=== PATIENT | male | born 1930 | race Caucasian/White ===

== ENCOUNTER 2017-02-10 16:11 | Inpatient (IN) | payer MEDICARE, BC ==
[2017-02-10] MEDS ORDERED: GI Cocktail Oral Solution 30 ML PO ONE (16:40)
--- NOTE | 2017-02-10 17:25 | EDM.PDOC ---
ED HPI GENERAL MEDICAL PROBLEM - General Chief Complaint: Chest Pain Stated Complaint: Chest pain Time Seen by Provider: 02/10/17 17:02 Source of Information: Reports: Patient History Limitations: Reports: No Limitations - History of Present Illness INITIAL COMMENTS - FREE TEXT/NARRATIVE: Patient presented to local clinic and was then referred to ER for evaluation of multiple complaints, including chest pain. Describes chest pain as central anterior chest, slightly to right of sternum. Says it feels like "heartburn" and adds that it has been present overall for the last 1 1/2 weeks. In addition to that he has had increased constipation and feeling of fullness in abdomen. More fatigued than usual. Took OTC laxative which promoted a bowel movement and he felt better for several days. Denies any HEENT changes. No SOB/respiratory changes/cough No palpitations. Has chronic issues with poor sleep. Has chronic issues with constipation. Denies nausea/emesis/blood in stools. No changes. No MS changes. No neuro changes. Pain/discomfort does not change with positional changes, or with eating/drinking /going to bathroom. By the time patient came to the ER, pain was improving. GI cocktail ordered, however patient essentially pain-free when he received it. Patient does have history of CAD/COPD/VT Has some issues with muscle cramps, somewhat worse today. Chest Pain Score (Numeric/FACES): 2 - Related Data Allergies Allergy/AdvReac Type Severity Reaction Status Date / Time celecoxib [From Celebrex] Allergy Itching Verified 06/01/16 23:56 Home Meds: Home Meds Allopurinol [Zyloprim] 300 mg PO DAILY 02/10/17 [History] Fluticasone/Salmeterol [Advair Diskus 100-50] 1 puff INH BID 02/10/17 [History] Gabapentin [Neurontin] 600 mg PO TID 02/10/17 [History] Lisinopril 10 mg PO DAILY 02/10/17 [History] Metolazone 2.5 mg PO DAILY 02/10/17 [History] Multivitamin [Multi-Vitamin Daily] 1 tab PO DAILY 02/10/17 [History] Psyllium Husk/Aspartame [Metamucil Fiber Singles Packet] 3.4 gm PO BEDTIME 02/10 [History] Simvastatin [Zocor] 20 mg PO BEDTIME 02/10/17 [History] Warfarin [Coumadin] 5 mg PO .Pharmacy To Dose 02/10/17 [History] traMADol HCl [Tramadol HCl] 25 mg PO Q6H PRN 02/10/17 [History] Past Medical History HEENT History: Reports: Cataract, Hard of Hearing, Impaired Vision, Other (See Below) Other HEENT History: Left-sided hearing aide, glasses Cardiovascular History: Reports: Afib, Arrhythmia, CAD, Cardiomyopathy, Heart Failure, Heart Murmur, High Cholesterol, Hypertension, VT, PVD, Other (See Below ) Other Cardiovascular History: Multiform PVCs; moderate biatrial enlargement, right ventricular enlargement, pulmonary hypertension, and cardiomegaly by echocardiogram; borderline incomplete bifascicular bundle branch block; possible history of VT in the past however patient is uncertain; mild aortic valve stenosis/insufficiency and mitral valve insufficiency, diastolic CHF Respiratory History: Reports: Bronchitis, Recurrent, COPD, Pneumonia, Recurrent , Pulmonary Fibrosis Gastrointestinal History: Reports: Cholelithiasis, Chronic Constipation, Colon Polyp, Diverticulosis, Other (See Below) Other Gastrointestinal History: Umbilical hernia Genitourinary History: Reports: BPH, Chronic Renal Insuffiency Musculoskeletal History: Reports: Amputation, Arthritis, Back Pain, Chronic, Fracture, Gout, Neck Pain, Chronic, Osteoarthritis, Osteoporosis, Other (See Below) Other Musculoskeletal History: Left trimalleolar fracture on 07/07/13, 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, disc prolapse in C5-C6 and C6- C7 Neurological History: Reports: Other (See Below) Other Neuro History: History of trigeminal neuralgia Psychiatric History: Reports: None Endocrine/Metabolic History: Reports: Osteoporosis Hematologic History: Reports: Anemia, B12 Deficiency Immunologic History: Reports: None Oncologic (Cancer) History: Reports: None Dermatologic History: Reports: Venous Stasis Dermatitis - Infectious Disease History Infectious Disease History: Reports: Chicken Pox, Mumps - Past Surgical History Head Surgeries/Procedures: Reports: None HEENT Surgical History: Reports: Cataract Surgery, Oral Surgery, Other (See Below) GI Surgical History: Reports: Appendectomy, Cholecystectomy, Colonoscopy, Polypectomy, Other (See Below) Endocrine Surgical History: Reports: None Neurological Surgical History: Reports: Laminectomy, Lumbar Spine, Other (See Below) Musculoskeletal Surgical History: Reports: Amputation, ORIF, Other (See Below) Oncologic Surgical History: Reports: None - Past Imaging History Past Imaging History: Reports: Cardiac Echo, MRI Social & Family History - Family History HEENT: Reports: None Cardiac: Reports: Hypertension, Other (See Below) Other Cardiac Family History: Mother with hypertension Respiratory: Reports: None GI: Reports: None : Reports: None OBGYN: Reports: None Musculoskeletal: Reports: None Neurological: Reports: None Psychiatric: Reports: None Endocrine/Metabolic: Reports: None Hematologic: Reports: None Immunologic: Reports: None Dermatologic: Reports: None Oncologic: Reports: None - Tobacco Use Smoking Status *Q: Former Smoker Years of Tobacco use: 20 Packs/Tins Daily: 2.5 Used Tobacco, but Quit: Yes Month Tobacco Last Used: Second Hand Smoke Exposure: No - Caffeine Use Caffeine Use: Reports: Coffee Caffeine Use Comment: One cup of coffee per day, 2 glasses of tea per day - Alcohol Use Days Per Week of Alcohol Use: 1 (No previous DWIs, problems with alcohol abuse, etc.) Number of Drinks Per Day: 1 (Usually beer) Total Drinks Per Week: 1 - Recreational Drug Use Recreational Drug Use: No Drug Use in Last 12 Months: No - Living Situation & Occupation Living situation: Reports: , Alone Occupation: Retired ED ROS GENERAL - Review of Systems Review Of Systems: See Below Constitutional: Reports: Fatigue. Denies: Fever, Chills, Malaise, Weakness, Night Sweats, Diaphoresis, Decreased Appetite, Weight Loss, Weight Gain HEENT: Reports: No Symptoms Respiratory: Reports: No Symptoms, Other (No change from baseline). Denies: Pleuritic Chest Pain Cardiovascular: Reports: Chest Pain. Denies: Lightheadedness, Palpitations, Syncope GI/Abdominal: Reports: Constipation, Distension. Denies: Black Stool, Bloody Stool, Diarrhea, Decreased Appetite, Difficulty Swallowing, Hematemesis, Hematochezia, Melena, Mucous in Stool, Nausea, Vomiting : Reports: No Symptoms Musculoskeletal: Reports: No Symptoms Skin: Reports: No Symptoms Neurological: Reports: No Symptoms Psychiatric: Reports: No Symptoms Hematologic/Lymphatic: Reports: No Symptoms ED EXAM, GENERAL - Physical Exam Exam: See Below Exam Limited By: No Limitations General Appearance: Alert, WD/WN, No Apparent Distress Eye Exam: Bilateral Eye: EOMI, PERRL Ears: Normal External Exam Nose: Normal Inspection Throat/Mouth: Normal Inspection, Normal Lips, Normal Voice, No Airway Compromise Head: Atraumatic, Normocephalic Neck: Normal Inspection, Supple, Non-Tender, Full Range of Motion Respiratory/Chest: No Respiratory Distress, No Accessory Muscle Use, Chest Non- Tender, Other (faint crackles base of right lung) Cardiovascular: Normal Peripheral Pulses, Regular Rate, Rhythm, No Edema, Systolic Murmur Peripheral Pulses: 2+: Radial (L), Radial (R) GI/Abdominal: Normal Bowel Sounds, Soft, Non-Tender, Other (rounded protuberant abdomen) (Male) Exam: Deferred Rectal (Males) Exam: Deferred Back Exam: Normal Inspection. No: CVA Tenderness (L), CVA Tenderness (R), Muscle Spasm, Paraspinal Tenderness, Vertebral Tenderness Extremities: Non-Tender, Normal Capillary Refill, Pedal Edema (mild, equal bilaterally) Neurological: Alert, Oriented, Normal Cognition, No Motor/Sensory Deficits Psychiatric: Normal Affect, Normal Mood Skin Exam: Warm, Dry, Intact, Normal Color EKG INTERPRETATION EKG Date: 02/10/17 Time: 16:09 Rhythm: Other (demand pacemaker) Rate (Beats/Min): 70 [place]: LAD-Left [place] Deviation P-Wave: Variable QRS: Other (Intraventricular block) ST-T: Normal QT: Normal Comparison: Change From Previous EKG Course - Vital Signs Last Recorded V/S: Last Vital Signs Temp 36.7 C 02/10/17 16:15 Pulse 71 02/10/17 17:25 Resp 18 02/10/17 17:25 BP 162/78 H 02/10/17 17:25 Pulse Ox 100 02/10/17 17:25 - Orders/Labs/Meds Orders: Active Orders 24 hr Category Date Time Status EKG Documentation Completion [RC] ASDIRECTED Care 02/10/17 16:20 Active Abdomen 2V AP Flat Upright [CR] Stat Exams 02/10/17 17:03 Taken Chest 1V Frontal [CR] Stat Exams 02/10/17 16:21 Taken Labs: Laboratory Tests 02/10/17 02/10/17 02/10/17 Range/Units 16:10 16:10 16:10 WBC 6.9 (4.0-10.2) K/uL RBC 4.51 (4.33-5.41) M/uL Hgb 14.3 (13.1-16.8) g/dL Hct 42.2 (39.0-49.0) % MCV 93.6 (84.0-98.0) fL MCH 31.7 (28.2-33.3) pg MCHC 33.9 (31.7-36.0) g/dL RDW 15.6 H (11.2-14.1) % Plt Count 143 L (150-350) K/uL Neut % (Auto) 71.0 (45.0-80.0) % Lymph % (Auto) 17.4 (10.0-50.0) % [place] % (Auto) 9.7 (2.0-14.0) % Eos % (Auto) 1.5 (0.0-5.0) % Baso % (Auto) 0.4 (0.0-2.0) % Neut # (Auto) 4.89 (1.40-7.00) K/uL Lymph # (Auto) 1.20 (0.50-3.50) K/uL [place] # (Auto) 0.67 (0.00-1.00) K/uL Eos # (Auto) 0.10 (0.00-0.50) K/uL Baso # (Auto) 0.03 (0.00-0.20) K/uL PT 27.0 H (9.8-11.7) SEC INR 2.4 Sodium 136 (136-145) mmol/L Potassium 4.4 (3.5-5.1) mmol/L Chloride 100 (98-107) mmol/L Carbon Dioxide 28.0 (21.0-32.0) mmol/L BUN 30 H (7-18) mg/dL Creatinine 1.25 H (0.51-1.17) mg/dL Est Cr Clr Drug Dosing 44.61 mL/min Estimated GFR (MDRD) 55 mL/min Glucose 90 (74-106) mg/dL Calcium 9.0 (8.5-10.1) mg/dL Total Bilirubin 0.6 (0.2-1.0) mg/dL AST 29 (15-37) U/L ALT 30 (12-78) U/L Alkaline Phosphatase 72 (46-116) IU/L Creatine Kinase (26-308) U/L Creatine Kinase Index (0.0-2.5) % CK-MB (CK-2) (0.00-3.60) ng/mL Troponin I 0.022 (0.000-0.056) ng/mL Total Protein 7.9 (6.4-8.2) g/dL Albumin 4.0 (3.4-5.0) g/dL Specimen Type Urine Color Urine Appearance Urine pH (5.0-9.0) Ur Specific [place] (1.005-1.030) Urine Protein (NEGATIVE) mg/dL Urine Glucose (UA) (NEGATIVE) mg/dL Urine Ketones (NEGATIVE) mg/dL Urine Occult Blood (NEGATIVE) Urine Nitrite (NEGATIVE) Urine Bilirubin (NEGATIVE) Urine Urobilinogen (0.2-1.0) E.U./dL Ur Leukocyte Esterase (NEGATIVE) Urine RBC /HPF Urine WBC /HPF Ur Epithelial Cells /LPF Urine Bacteria (NONE TO FEW) /HPF 02/10/17 02/10/17 Range/Units 16:10 17:40 WBC (4.0-10.2) K/uL RBC (4.33-5.41) M/uL Hgb (13.1-16.8) g/dL Hct (39.0-49.0) % MCV (84.0-98.0) fL MCH (28.2-33.3) pg MCHC (31.7-36.0) g/dL RDW (11.2-14.1) % Plt Count (150-350) K/uL Neut % (Auto) (45.0-80.0) % Lymph % (Auto) (10.0-50.0) % [place] % (Auto) (2.0-14.0) % Eos % (Auto) (0.0-5.0) % Baso % (Auto) (0.0-2.0) % Neut # (Auto) (1.40-7.00) K/uL Lymph # (Auto) (0.50-3.50) K/uL [place]lier # (Auto) (0.00-1.00) K/uL Eos # (Auto) (0.00-0.50) K/uL Baso # (Auto) (0.00-0.20) K/uL PT (9.8-11.7) SEC INR Sodium (136-145) mmol/L Potassium (3.5-5.1) mmol/L Chloride (98-107) mmol/L Carbon Dioxide (21.0-32.0) mmol/L BUN (7-18) mg/dL Creatinine (0.51-1.17) mg/dL Est Cr Clr Drug Dosing mL/min Estimated GFR (MDRD) mL/min Glucose (74-106) mg/dL Calcium (8.5-10.1) mg/dL Total Bilirubin (0.2-1.0) mg/dL AST (15-37) U/L ALT (12-78) U/L Alkaline Phosphatase (46-116) IU/L Creatine Kinase 175 (26-308) U/L Creatine Kinase Index 2.0 (0.0-2.5) % CK-MB (CK-2) 3.50 (0.00-3.60) ng/mL Troponin I (0.000-0.056) ng/mL Total Protein (6.4-8.2) g/dL Albumin (3.4-5.0) g/dL Specimen Type Urinblad Urine Color Yellow Urine Appearance Clear Urine pH 7.5 (5.0-9.0) Ur Specific [place] 1.015 (1.005-1.030) Urine Protein Negative (NEGATIVE) mg/dL Urine Glucose (UA) Negative (NEGATIVE) mg/dL Urine Ketones Negative (NEGATIVE) mg/dL Urine Occult Blood Negative (NEGATIVE) Urine Nitrite Negative (NEGATIVE) Urine Bilirubin Negative (NEGATIVE) Urine Urobilinogen 0.2 (0.2-1.0) E.U./dL Ur Leukocyte Esterase Moderate H (NEGATIVE) Urine RBC Not seen /HPF Urine WBC 0-5 /HPF Ur Epithelial Cells Few /LPF Urine Bacteria Few (NONE TO FEW) /HPF Meds: Medications Discontinued Medications Generic Name Dose Route Start Last Admin Trade Name Freq PRN Reason Stop Dose Admin Al Hydroxide/Mg Hydroxide 30 ml 02/10/17 16:40 02/10/17 16:49 Gi Cocktail PO 02/10/17 16:41 30 ml ONETIME ONE Administration - Radiology Interpretation Free Text/Narrative:: No acute changes appreciated on chest xray. Compared to prior films. No air/fluid levels noted on abdominal films. - Re-Assessments/Exams Free Text/Narrative Re-Assessment/Exam: 02/10/17 18:22 Patient had no chest pain while present in ER. Will admit for continued cardiac monitoring and continue serial labs for r/o VT. Will treat for constipation. Suspect that patient's complaints are related to constipation and have GI etiology. Departure - Departure Time of Disposition: 18:24 Disposition: Refer to Observation Condition: Good Clinical Impression: Chronic constipation Chest pain Qualifiers: Chest pain type: unspecified Qualified Code(s): R07.9 - Chest pain, unspecified - Discharge Information Forms: ED Department Discharge - Problem List & Annotations (1) Chest pain SNOMED Code(s): 07953545 Code(s): R07.9 - CHEST PAIN, UNSPECIFIED Status: Acute Priority: High Current Visit: Yes Onset Date: ~01/27/17 Annotation/Comment:: GI vs Cardiac etiology Qualifiers: Chest pain type: unspecified Qualified Code(s): R07.9 - Chest pain, unspecified (2) Pacemaker SNOMED Code(s): 830946422, 896306358 Code(s): Z95.0 - PRESENCE OF CARDIAC PACEMAKER Status: Chronic Current Visit: No (3) Afib, Atrial fibrillation SNOMED Code(s): 79410937 Code(s): I48.91 - UNSPECIFIED ATRIAL FIBRILLATION Status: Chronic Current Visit: No (4) COPD, Moderate chronic obstructive pulmonary disease SNOMED Code(s): 577345568 Code(s): J44.9 - CHRONIC OBSTRUCTIVE PULMONARY DISEASE, UNSPECIFIED Status : Chronic Current Visit: No (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 (6) Cardiomegaly SNOMED Code(s): 7780328 Code(s): I51.7 - CARDIOMEGALY Status: Chronic Current Visit: No (7) HTN, Benign essential hypertension SNOMED Code(s): 2598405 Code(s): I10 - ESSENTIAL (PRIMARY) HYPERTENSION Status: Chronic Priority : Medium Current Visit: No (8) Osteoarthritis SNOMED Code(s): 303816187 Code(s): M19.90 - UNSPECIFIED OSTEOARTHRITIS, UNSPECIFIED SITE Status: Chronic Priority: Medium Current Visit: No (9) Osteoporosis SNOMED Code(s): 19459255 Code(s): M81.0 - AGE-RELATED OSTEOPOROSIS W/O CURRENT PATHOLOGICAL FRACTURE Status: Chronic Current Visit: No (10) Mixed hyperlipidemia SNOMED Code(s): 022233876 Code(s): E78.2 - MIXED HYPERLIPIDEMIA Status: Acute Current Visit: No (11) Chronic constipation SNOMED Code(s): 983525324 Code(s): K59.09 - OTHER CONSTIPATION Status: Chronic Priority: Medium Current Visit: Yes (12) Coronary artery disease SNOMED Code(s): 61024077 Code(s): I25.10 - ATHSCL HEART DISEASE OF [place]' CORONARY ARTERY W/O ANG PCTRS Status: Chronic Priority: Medium Current Visit: Yes Qualifiers: Coronary Disease-Associated Artery/Lesion type: ione artery [place] vs. transplanted heart: ione heart Associated angina: without angina Qualified Code(s): I25.10 - Atherosclerotic heart disease of [place] coronary artery without angina pectoris - Problem List Review Problem List Initiated/Reviewed/Updated: Yes - My Orders Last 24 Hours: My Active Orders 02/10/17 16:20 EKG Documentation Completion [RC] ASDIRECTED 02/10/17 16:21 Chest 1V Frontal [CR] Stat 02/10/17 17:03 Abdomen 2V AP Flat Upright [CR] Stat - Assessment/Plan Admission H&P: Please use this note as an admission H&P Last 24 Hours: My Active Orders 02/10/17 16:20 EKG Documentation Completion [RC] ASDIRECTED 02/10/17 16:21 Chest 1V Frontal [CR] Stat 02/10/17 17:03 Abdomen 2V AP Flat Upright [CR] Stat Assessment:: Abdominal discomfort, constipation, and intermittent chest pain over the last 1 1/2 to 2 weeks. GI vs Cardiac vs combination etiology. Plan: Admit for r/o VT. Telemetry. Serial labs. Will treat constipation. Stable for general supervision. Anticipate 24-48 hour stay before discharge.
[2017-02-10] MEDS ORDERED: Acetaminophen 325 MG Tab PO PRN (19:00)
[2017-02-10] MEDS ORDERED: Magnesium Citrate Solution 296 ML Bottle PO ONE (19:07)
[2017-02-10] MEDS ORDERED: traMADol 50 MG Tab PO PRN (19:10)
[2017-02-10] MEDS ORDERED: Pantoprazole 40 MG Vial IVPUSH ONE (19:13)
[2017-02-10] MEDS: Simvastatin 20 MG Tab PO SCH (20:13)
[2017-02-10] MEDS ORDERED: Warfarin 5 MG Tab PO ONE (20:15)
[2017-02-11] MEDS: Metolazone 2.5 MG Tab PO SCH (09:26)
[2017-02-11] MEDS: Multivitamin Tab PO SCH (09:26)
[2017-02-11] MEDS: Formoterol/Mometasone 100-5 MCG 8.8 GM Inhaler IH SCH ×2 (09:26→19:26)
[2017-02-11] MEDS: Lisinopril 10 MG Tab PO SCH (09:26)
[2017-02-11] MEDS: Allopurinol 100 MG Tab PO SCH (09:26)
[2017-02-11] MEDS: Gabapentin 300 MG Cap PO SCH ×3 (09:26→17:44)
--- NOTE | 2017-02-11 11:26 | PCM.PN ---
- General Info Date of Service: 02/11/17 Admission Dx/Problem (Free Text): 1. Chest pain 2. Constipation Subjective Update: As below Functional Status: Reports: Pain Controlled, Tolerating Diet, Ambulating, Urinating, Incentive Spirometry. Denies: New Symptoms Pain Score: 0 - Review of Systems General: Reports: No Symptoms. Denies: Fever, Weakness, Fatigue, Malaise, Chills, Night Sweats, Appetite, Other HEENT: Reports: Glasses. Denies: Dysphasia, Ear Pain, Eye Pain, Post Nasal Drip , Sinus Congestion, Sore Throat, Rhinitis, Visual Changes Pulmonary: Reports: No Symptoms. Denies: Shortness of Breath, Pleuritic Chest Pain, Cough, Sputum, Hemoptysis, Wheezing Cardiovascular: Reports: No Symptoms. Denies: Chest Pain, Palpitations, Dyspnea on Exertion, Orthopnea, PND, Edema, Lightheadedness Gastrointestinal: Reports: No Symptoms. Denies: Abdominal Pain, Constipation ( With 4 bowel movements since admission into large somewhat loose bowel movements this morning), Decreased Appetite, Diarrhea (As above), Difficulty Swallowing, Flatus, Hematochezia, Melena, Nausea, Vomiting Genitourinary: Reports: No Symptoms. Denies: Dysuria, Frequency, Burning, Pain , Urgency, Incontinence, Hematuria, Retention, Flank Pain Musculoskeletal: Reports: No Symptoms. Denies: Neck Pain, Shoulder Pain, Arm Pain, Back Pain, Leg Pain Skin: Reports: No Symptoms. Denies: Diaphoresis, Bruising Neurological: Reports: Numbness (Stable by history), Paresthesia (Stable by history), Tingling (Stable by history). Denies: Confusion, Dizziness, Headache , Seizure, Weakness Psychiatric: Reports: No Symptoms. Denies: Confusion, Depression, Anxiety, Agitation, Hallucinations - Patient Data Vitals - Most Recent: Last Vital Signs Temp 36.6 C 02/11/17 10:54 Pulse 68 02/11/17 10:54 Resp 16 02/11/17 10:54 BP 163/76 H 02/11/17 10:54 Pulse Ox 95 02/11/17 10:54 Vital Signs - 24 hr 02/10/17 02/10/17 02/10/17 16:15 16:25 16:50 Temperature [ 36.7 C Temporal] Pulse, 77 74 Peripheral [ Right Pulse Oximetry] Respiratory 18 18 18 Rate Blood Pressure 179/83 H 158/69 H 152/64 H [Right Upper Arm] O2 Sat by Pulse 100 99 100 Oximetry 02/10/17 02/10/17 02/10/17 16:53 17:10 17:25 Temperature [ Temporal] Pulse, 62 72 71 Peripheral [ Right Pulse Oximetry] Respiratory 18 18 18 Rate Blood Pressure 170/68 H 152/68 H 162/78 H [Right Upper Arm] O2 Sat by Pulse 100 100 100 Oximetry 02/10/17 02/10/17 02/10/17 17:42 17:50 18:29 Temperature [ 36.7 C 36.7 C Temporal] Pulse, 84 78 77 Peripheral [ Right Pulse Oximetry] Respiratory 18 19 18 Rate Blood Pressure 158/58 H 162/70 H 153/69 H [Right Upper Arm] O2 Sat by Pulse 100 100 100 Oximetry 02/10/17 02/11/17 02/11/17 19:03 08:00 10:54 Temperature [ 36.8 C 36.6 C Temporal] Pulse, 68 68 Peripheral [ Right Pulse Oximetry] Respiratory 16 16 Rate Blood Pressure 123/62 163/76 H [Right Upper Arm] O2 Sat by Pulse 100 96 95 Oximetry Weight - Most Recent: 105.233 kg I&O - Last 24 Hours: Intake & Output 02/10/17 02/11/17 02/11/17 22:59 06:59 14:59 Intake Total 560 360 Output Total 300 450 Balance 260 -90 Imaging Impressions - Last 24 Hours: monitor worker shows 100% paced rhythm Lab Results Last 24 Hours: Laboratory Results - last 24 hr 02/10/17 02/10/17 02/11/17 Range/Units 22:05 22:05 06:40 PT (9.8-11.7) SEC INR Magnesium 1.9 (1.8-2.4) mg/dL Creatine Kinase 190 (26-308) U/L Creatine Kinase Index 1.8 (0.0-2.5) % CK-MB (CK-2) 3.50 (0.00-3.60) ng/mL Troponin I 0.029 (0.000-0.056) ng/mL [id number]-[id number]-Tdftglalnop Pept 671 H (0-125) pg/mL 02/11/17 02/11/17 Range/Units 07:55 08:00 PT 23.0 H (9.8-11.7) SEC INR 2.1 Magnesium (1.8-2.4) mg/dL Creatine Kinase 166 (26-308) U/L Creatine Kinase Index 1.4 (0.0-2.5) % CK-MB (CK-2) 2.40 (0.00-3.60) ng/mL Troponin I 0.014 (0.000-0.056) ng/mL Jrq-B-Ftazxedqusl Pept (0-125) pg/mL Davey Results Last 24 Hours: None Med Orders - Current: Current Medications Acetaminophen (Tylenol) 650 mg PO Q4H PRN PRN Reason: analgesia/fever Allopurinol (Zyloprim) 300 mg PO DAILY [facility], [facility] Last Admin: 02/11/17 09:26 Dose: Not Given Gabapentin (Neurontin) 600 mg PO TID [facility], [facility]1983 Last Admin: 02/11/17 11:11 Dose: 600 mg Lisinopril (Prinivil) 10 mg PO DAILY [facility], [facility]1983 Last Admin: 02/11/17 09:26 Dose: Not Given Metolazone (Zaroxolyn) 2.5 mg PO DAILY [facility], [facility] Last Admin: 02/11/17 09:26 Dose: Not Given Mometasone Furoate/Formoterol Fumar (Dulera 100-5 Mcg) 2 puff IH BIDRT [facility], [facility]1983 Last Admin: 02/11/17 09:26 Dose: Not Given Multivitamins/Minerals/Vitamin C (Tab-A-Mando) 1 tab PO DAILY [facility], [facility]1983 Last Admin: 02/11/17 09:26 Dose: Not Given Pharmacy To Dose (Warfarin) 0 each PO DAILY [facility], [facility] Simvastatin (Zocor) 20 mg PO BEDTIME [facility], [facility] Last Admin: 02/10/17 20:13 Dose: 20 mg Tramadol HCl (Ultram) 25 mg PO Q6H PRN PRN Reason: Pain Discontinued Medications Al Hydroxide/Mg Hydroxide (Gi Cocktail) 30 ml PO ONETIME ONE Stop: 02/10/17 16:41 Last Admin: 02/10/17 16:49 Dose: 30 ml Magnesium Citrate (Citrate Of Magnesia) 296 ml PO ONETIME ONE Stop: 02/10/17 19:08 Last Admin: 02/10/17 20:13 Dose: 296 ml Pantoprazole Sodium (Protonix Iv) 40 mg IVPUSH ONETIME ONE Stop: 02/10/17 19:14 Last Admin: 02/10/17 20:14 Dose: 40 mg Warfarin Sodium (Coumadin) 5 mg PO ONETIME ONE Stop: 02/10/17 20:16 Last Admin: 02/10/17 20:13 Dose: 5 mg - Exam Quality Assessment: Supplemental Oxygen, DVT Prophylaxis (On Coumadin with therapeutic INR). No: Central Line/PICC, Urine Catheter, Skin Breakdown, Restraints General: Alert, Oriented, Cooperative, No Acute Distress HEENT: Pupils Equal, Pupils Reactive, EOMI, Mucous Membr. Moist/[place], Other ( Glasses, left hearing aid) Neck: Supple, Trachea Midline, No JVD, No Thyromegaly, Carotid Bruit (Mild bilateral carotid bruits versus transmitted heart sounds). No: Lymphadenopathy Lungs: Normal Respiratory Effort, Rales (Mild bilateral basilar). No: Rhonchi, Rub, Wheezing Cardiovascular: Regular Rate, Regular Rhythm, Murmurs (Mild 1/6 BILL of the aortic valve). No: Gallops, Rubs GI/Abdominal Exam: Normal Bowel Sounds, Soft, Non-Tender, No Organomegaly, No Distention, No Abnormal Bruit, No Mass, Pelvis Stable, Other (Obese). No: Guarding (Male) Exam: Deferred Back Exam: Normal Inspection, Full Range of Motion. No: CVA Tenderness (L), CVA Tenderness (R), Muscle Spasm Peripheral Pulses: 2+: Radial (L), Radial (R), Dorsalis Pedis (L), Dorsalis Pedis (R) Skin: Warm, Dry, Intact, Other (Moderate bilateral venous stasis dermatitis in the anterior tibial regions bilaterally). No: Ecchymosis Neurological: No New Focal Deficit, Other (No clinical orthostasis) Psy/Mental Status: Alert, Normal Affect, Normal Mood. No: Agitated, Hallucinations, Withdrawal Symptoms EKG INTERPRETATION EKG Date: 02/11/17 Time: 07:13 Rhythm: Other (100% paced) Rate (Beats/Min): 69 [place]: LAD-Left [place] Deviation P-Wave: Absent QRS: Wide (Paced rhythm) ST-T: Other (Paced rhythm) OK/PQ Interval: Paced rhythm Comparison: No Change (02/10/17) EKG Interpretation Comments: 1. No acute ischemic changes 2. 100% paced rhythm - Problem List & Annotations (1) CHF, Congestive heart failure SNOMED Code(s): 71148488 Code(s): I50.9 - HEART FAILURE, UNSPECIFIED Status: Acute Priority: High Current Visit: No Annotation/Comment:: History of cardiomegaly and recurrent CHF with patient previously taking his Lasix on an every other day basis. Note significant BNP elevation today. Various therapeutic options were discussed with the patient, who does request continued hospitalization for IV Lasix therapy for now. He will be transferred to acute care with initiation of aggressive IV Lasix therapy this morning. Repeat blood work and chest x-ray in the a.m.. Otherwise close follow-up by his purchasing/receiving at [facility] as below. Note current pacemaker (2) Chest pain SNOMED Code(s): 81302316 Code(s): R07.9 - CHEST PAIN, UNSPECIFIED Status: Acute Priority: High Current Visit: Yes Onset Date: ~01/27/17 Qualifiers: Chest pain type: unspecified Qualified Code(s): R07.9 - Chest pain, unspecified Annotation/Comment:: GI vs Cardiac etiology suspected by accepting physician as per emergency room note. Negative serial cardiac enzymes with exception of high normal troponin I value secondary to CHF with significantly elevated BNP today. He is closely followed up by his purchasing/receiving by his history. No chest pain or anginal-type symptoms during this initial hospitalization (3) Chronic constipation SNOMED Code(s): 334789083 Code(s): K59.09 - OTHER CONSTIPATION Status: Chronic Priority: Medium Current Visit: Yes Annotation/Comment:: Resolved acute constipation during this observation (4) Coronary artery disease SNOMED Code(s): 71312716 Code(s): I25.10 - ATHSCL HEART DISEASE OF [place] CORONARY ARTERY W/O ANG PCTRS Status: Chronic Priority: Medium Current Visit: Yes Qualifiers: Coronary Disease-Associated Artery/Lesion type: [place] artery [place] vs. transplanted heart: [place] heart Associated angina: without angina Qualified Code(s): I25.10 - Atherosclerotic heart disease of [place] coronary artery without angina pectoris Annotation/Comment:: As above (5) Mixed hyperlipidemia SNOMED Code(s): 284809944 Code(s): E78.2 - MIXED HYPERLIPIDEMIA Status: Chronic Current Visit: Yes Annotation/Comment:: Currently under therapy (6) Afib, Atrial fibrillation SNOMED Code(s): 79876163 Code(s): I48.91 - UNSPECIFIED ATRIAL FIBRILLATION Status: Chronic Priority: Medium Current Visit: Yes Annotation/Comment:: INR therapeutic today (7) COPD (chronic obstructive pulmonary disease) SNOMED Code(s): 27770687 Code(s): J44.9 - CHRONIC OBSTRUCTIVE PULMONARY DISEASE, UNSPECIFIED Status : Chronic Priority: Medium Current Visit: No Qualifiers: COPD type: emphysema Annotation/Comment:: No recent fever, cough, or other bronchitic type symptoms (8) HTN, Benign essential hypertension SNOMED Code(s): 3112543 Code(s): I10 - ESSENTIAL (PRIMARY) HYPERTENSION Status: Chronic Priority : Medium Current Visit: No Annotation/Comment:: Somewhat elevated during this hospitalization. Continue to observe closely with IV Lasix therapy initiated this morning as above (9) Hypoalbuminemia SNOMED Code(s): 043320045 Code(s): E88.09 - H DISORDERS OF PLASMA-PROTEIN METABOLISM, NEC Status: Chronic Priority: Medium Current Visit: No Annotation/Comment:: High- protein Glucerna supplements as snacks (10) Renal insufficiency SNOMED Code(s): 122872563 Code(s): N28.9 - DISORDER OF KIDNEY AND URETER, UNSPECIFIED Status: Chronic Priority: Medium Current Visit: No Annotation/Comment:: As above. Continued close observation of his renal status secondary to IV Lasix therapy (11) Gout SNOMED Code(s): 47978808 Code(s): M10.9 - GOUT, UNSPECIFIED Status: Chronic Priority: Medium Current Visit: No Annotation/Comment:: Stable by history. Continue to observe closely secondary to his IV Lasix (12) UTI (urinary tract infection) SNOMED Code(s): 32804445 Code(s): N39.0 - URINARY TRACT INFECTION, SITE NOT SPECIFIED Status: Acute Priority: Medium Current Visit: Yes Onset Date: 02/10/17 Qualifiers: Urinary tract infection type: acute cystitis Hematuria presence: without hematuria Qualified Code(s): N30.00 - Acute cystitis without hematuria Annotation/Comment:: Positive leukocyte esterase, urine culture and sensitivity ordered for today. Initiate Keflex therapy with caution secondary to his Coumadin therapy with repeat INR tomorrow - Problem List Review Problem List Initiated/Reviewed/Updated: Yes - Assessment Assessment:: As above - Plan Plan:: As above. Extensive precautions were given to the patient, who is in agreement with the treatment plan. Anticipate about 2-3 days of additional hospitalization secondary to his history of recurrent and refractory CHF.
[2017-02-11] MEDS: Furosemide 40 MG/4 ML VIAL IVPUSH SCH ×2 (12:22→19:27)
[2017-02-11] MEDS: Potassium Chloride 20 MEQ Tab.ER PO SCH ×2 (12:22→17:44)
[2017-02-11] MEDS: Sodium Chloride 0.9% 10 ML Syringe FLUSH PRN (12:26)
[2017-02-11] MEDS: Cephalexin 250 MG Cap PO SCH ×2 (15:51→19:27)
[2017-02-11] MEDS: Warfarin 5 MG Tab PO SCH (17:45)
[2017-02-11] MEDS: Sodium Chloride 0.9% 10 ML Syringe FLUSH SCH (19:27)
[2017-02-11] MEDS: Simvastatin 20 MG Tab PO SCH (19:27)
[2017-02-12] MEDS: Sodium Chloride 0.9% 10 ML Syringe FLUSH PRN ×2 (03:26→11:26)
[2017-02-12] MEDS: Furosemide 40 MG/4 ML VIAL IVPUSH SCH ×3 (03:26→20:10)
[2017-02-12] MEDS: Cephalexin 250 MG Cap PO SCH ×4 (08:15→20:10)
[2017-02-12] MEDS: Formoterol/Mometasone 100-5 MCG 8.8 GM Inhaler IH SCH ×2 (08:15→20:10)
[2017-02-12] MEDS: Allopurinol 100 MG Tab PO SCH (08:16)
[2017-02-12] MEDS: Potassium Chloride 20 MEQ Tab.ER PO SCH ×3 (08:16→17:31)
[2017-02-12] MEDS: Multivitamin Tab PO SCH (08:16)
[2017-02-12] MEDS: Metolazone 2.5 MG Tab PO SCH (08:16)
[2017-02-12] MEDS: Lisinopril 10 MG Tab PO SCH (08:16)
[2017-02-12] MEDS: Gabapentin 300 MG Cap PO SCH ×3 (08:16→17:31)
[2017-02-12] MEDS: Sodium Chloride 0.9% 10 ML Syringe FLUSH SCH ×2 (08:17→20:11)
--- NOTE | 2017-02-12 12:52 | PCM.PN ---
- General Info Date of Service: 02/12/17 Admission Dx/Problem (Free Text): 1. Chest pain 2. Constipation Subjective Update: As below Functional Status: Reports: Pain Controlled, Tolerating Diet, Ambulating, Urinating, New Symptoms (Occasional muscle cramps and myalgias secondary to Lasix therapy). Denies: Incentive Spirometry Pain Score: 3 - Review of Systems General: Denies: Fever, Weakness, Fatigue, Malaise, Chills, Night Sweats, Appetite (Appetite good) HEENT: Reports: Glasses, Other (Left-sided hearing aid). Denies: Dysphasia, Ear Pain, Eye Pain, Headaches, Post Nasal Drip, Sinus Congestion, Sore Throat, Rhinitis, Visual Changes Pulmonary: Reports: No Symptoms. Denies: Shortness of Breath, Pleuritic Chest Pain, Cough, Sputum, Wheezing Cardiovascular: Reports: No Symptoms. Denies: Chest Pain, Palpitations, Dyspnea on Exertion, Orthopnea, PND, Edema, Lightheadedness Gastrointestinal: Reports: No Symptoms. Denies: Abdominal Pain, Constipation, Decreased Appetite, Diarrhea, Difficulty Swallowing, Flatus, Hematochezia, Melena, Nausea, Vomiting Genitourinary: Reports: No Symptoms. Denies: Dysuria, Frequency, Burning, Pain , Urgency, Incontinence, Retention, Flank Pain Musculoskeletal: Reports: Other (Non-Specific generalized myalgias as above) Skin: Reports: No Symptoms. Denies: Diaphoresis Neurological: Reports: No Symptoms. Denies: Confusion, Dizziness, Headache, Numbness, Paresthesia, Tingling, Weakness Psychiatric: Reports: No Symptoms. Denies: Confusion, Depression, Anxiety, Agitation, Cravings, Hallucinations - Patient Data Vitals - Most Recent: Last Vital Signs Temp 36.7 C 02/12/17 12:00 Pulse 81 02/12/17 12:00 Resp 16 02/12/17 12:00 BP 120/69 02/12/17 12:00 Pulse Ox 92 L 02/12/17 12:00 Vital Signs - 24 hr 02/11/17 02/11/17 02/12/17 18:00 19:03 00:00 Temperature [ Oral] Temperature [ 36.9 C 36.6 C Temporal] Pulse, 60 64 Peripheral [ Right Pulse Oximetry] Respiratory 16 14 Rate Blood Pressure Blood Pressure 127/59 L 129/72 [Right Upper Arm] O2 Sat by Pulse 60 L 97 99 Oximetry 02/12/17 02/12/17 02/12/17 06:00 08:16 12:00 Temperature [ 36.7 C Oral] Temperature [ 36.9 C Temporal] Pulse, 73 81 Peripheral [ Right Pulse Oximetry] Respiratory 15 16 Rate Blood Pressure 128/71 Blood Pressure 128/71 120/69 [Right Upper Arm] O2 Sat by Pulse 97 92 L Oximetry Weight - Most Recent: 105.233 kg I&O - Last 24 Hours: Intake & Output 02/11/17 02/12/17 02/12/17 22:59 06:59 14:59 Intake Total 960 400 980 Output Total 650 1200 1150 Balance 310 -800 -170 Imaging Impressions - Last 24 Hours: Chest x-ray, PA and lateral, showed moderate COPD changes with severe cardiomegaly and pacemaker noted with leads in appropriate position. Probable mild pulmonary hypertension and mild centralized CHF with mild to moderate osteoarthritic and osteoporotic changes in the thoracic spine. No pulmonary infiltrates, pneumothorax, etc. Lab Results Last 24 Hours: Laboratory Results - last 24 hr 02/12/17 02/12/17 02/12/17 Range/Units 06:45 06:45 06:45 WBC 6.5 (4.0-10.2) K/uL RBC 4.58 (4.33-5.41) M/uL Hgb 14.5 (13.1-16.8) g/dL Hct 43.3 (39.0-49.0) % MCV 94.5 (84.0-98.0) fL MCH 31.7 (28.2-33.3) pg MCHC 33.5 (31.7-36.0) g/dL RDW 16.1 H (11.2-14.1) % Plt Count 141 L (150-350) K/uL Neut % (Auto) 70.9 (45.0-80.0) % Lymph % (Auto) 16.5 (10.0-50.0) % [place] % (Auto) 10.3 (2.0-14.0) % Eos % (Auto) 2.0 (0.0-5.0) % Baso % (Auto) 0.3 (0.0-2.0) % Neut # (Auto) 4.59 (1.40-7.00) K/uL Lymph # (Auto) 1.07 (0.50-3.50) K/uL [place] # (Auto) 0.67 (0.00-1.00) K/uL Eos # (Auto) 0.13 (0.00-0.50) K/uL Baso # (Auto) 0.02 (0.00-0.20) K/uL PT 26.3 H (9.8-11.7) SEC INR 2.4 Sodium 138 (136-145) mmol/L Potassium 4.0 (3.5-5.1) mmol/L Chloride 100 (98-107) mmol/L Carbon Dioxide 28.7 (21.0-32.0) mmol/L BUN 39 H (7-18) mg/dL Creatinine 1.51 H (0.51-1.17) mg/dL Est Cr Clr Drug Dosing 37.02 mL/min Estimated GFR (MDRD) 44 mL/min Glucose 104 (74-106) mg/dL Uric Acid 6.1 (2.6-7.2) mg/dL Calcium 9.0 (8.5-10.1) mg/dL Total Bilirubin 0.5 (0.2-1.0) mg/dL AST 27 (15-37) U/L ALT 30 (12-78) U/L Alkaline Phosphatase 68 (46-116) IU/L Creatine Kinase 207 (26-308) U/L Creatine Kinase Index 1.0 (0.0-2.5) % CK-MB (CK-2) 2.00 (0.00-3.60) ng/mL Troponin I 0.010 (0.000-0.056) ng/mL Qme-[id number]-Pnacevbfiyf Pept 476 H (0-125) pg/mL Total Protein 7.8 (6.4-8.2) g/dL Albumin 4.0 (3.4-5.0) g/dL Davey Results Last 24 Hours: Microbiology 02/11/17 15:20 Urine Culture - Final Urine, Clean Catch Urine culture and sensitivity showed probable contamination Med Orders - Current: Current Medications Acetaminophen (Tylenol) 650 mg PO Q4H PRN PRN Reason: analgesia/fever Allopurinol (Zyloprim) 300 mg PO DAILY [facility] Last Admin: 02/12/17 08:16 Dose: 300 mg Cephalexin (Keflex) 500 mg PO QID [facility] Last Admin: 02/12/17 11:30 Dose: 500 mg Furosemide (Lasix) 40 mg IVPUSH Q8H [facility] Last Admin: 02/12/17 11:25 Dose: 40 mg Gabapentin (Neurontin) 600 mg PO TID [facility] Last Admin: 02/12/17 11:30 Dose: 600 mg Lisinopril (Prinivil) 10 mg PO DAILY [facility] Last Admin: 02/12/17 08:16 Dose: 10 mg Metolazone (Zaroxolyn) 2.5 mg PO DAILY [facility] Last Admin: 02/12/17 08:16 Dose: 2.5 mg Mometasone Furoate/Formoterol Fumar (Dulera 100-5 Mcg) 2 puff IH BIDRT [facility] Last Admin: 02/12/17 08:15 Dose: 2 puff Multivitamins/Minerals/Vitamin C (Tab-A-Mando) 1 tab PO DAILY [facility] Last Admin: 02/12/17 08:16 Dose: 1 tab Potassium Chloride (Klor-Con M20) 20 meq PO TID [facility] Last Admin: 02/12/17 11:31 Dose: 20 meq Simvastatin (Zocor) 20 mg PO BEDTIME [facility] Last Admin: 02/11/17 19:27 Dose: 20 mg Sodium Chloride (Saline Flush) 10 ml FLUSH ASDIRECTED PRN PRN Reason: KEEP VEIN OPEN Last Admin: 02/12/17 11:26 Dose: 10 ml Sodium Chloride (Saline Flush) 10 ml FLUSH Q12HR [facility] Last Admin: 02/12/17 08:17 Dose: 10 ml Tramadol HCl (Ultram) 25 mg PO Q6H PRN PRN Reason: Pain Warfarin Sodium (Coumadin) 5 mg PO QPM [facility] Last Admin: 02/11/17 17:45 Dose: 5 mg Discontinued Medications Al Hydroxide/Mg Hydroxide (Gi Cocktail) 30 ml PO ONETIME ONE Stop: 02/10/17 16:41 Last Admin: 02/10/17 16:49 Dose: 30 ml Magnesium Citrate (Citrate Of Magnesia) 296 ml PO ONETIME ONE Stop: 02/10/17 19:08 Last Admin: 02/10/17 20:13 Dose: 296 ml Pharmacy To Dose (Warfarin) 0 each PO DAILY [facility] Last Admin: 02/11/17 22:29 Dose: Not Given Pantoprazole Sodium (Protonix Iv) 40 mg IVPUSH ONETIME ONE Stop: 02/10/17 19:14 Last Admin: 02/10/17 20:14 Dose: 40 mg Warfarin Sodium (Coumadin) 5 mg PO ONETIME ONE Stop: 02/10/17 20:16 Last Admin: 02/10/17 20:13 Dose: 5 mg - Exam Quality Assessment: DVT Prophylaxis. No: Supplemental Oxygen, Central Line/PICC , Urine Catheter, Skin Breakdown, Restraints General: Alert, Oriented, Cooperative, No Acute Distress HEENT: Pupils Equal, Pupils Reactive, EOMI, Mucous Membr. Moist/[place], Other ( Glasses, left sided hearing aide) Neck: Supple, Trachea Midline, No JVD, No Thyromegaly, Carotid Bruit (Bilateral carotid bruits versus transmitted heart sounds). No: Lymphadenopathy Lungs: Normal Respiratory Effort, Rales (Mild bilateral basilar). No: Rhonchi, Rub, Stridor, Wheezing Cardiovascular: Regular Rate, Regular Rhythm, No Murmurs. No: Gallops, Rubs GI/Abdominal Exam: Normal Bowel Sounds, Soft, Non-Tender, No Organomegaly, No Distention, No Abnormal Bruit, No Mass, Pelvis Stable, Other (Obese). No: Guarding (Male) Exam: Deferred Back Exam: Normal Inspection, Full Range of Motion. No: CVA Tenderness (L), CVA Tenderness (R), Muscle Spasm Extremities: Normal Inspection, Normal Range of Motion, Non-Tender, No Pedal Edema, Normal Capillary Refill. No: Joint Swelling, Yesenia's Sign Peripheral Pulses: 2+: Radial (L), Radial (R), Dorsalis Pedis (L), Dorsalis Pedis (R) Skin: Warm, Dry, Intact. No: Ecchymosis Neurological: No New Focal Deficit Psy/Mental Status: Alert, Normal Affect, Normal Mood. No: Agitated, Hallucinations, Withdrawal Symptoms - Problem List & Annotations (1) CHF, Congestive heart failure SNOMED Code(s): 84271951 Code(s): I50.9 - HEART FAILURE, UNSPECIFIED Status: Acute Priority: High Current Visit: No Annotation/Comment:: Some BNP improvement with aggressive IV Lasix therapy. Various therapeutic options were discussed with the patient, who wishes an additional day of IV diuresis with probable discharge to home tomorrow and close follow-up by his regular providers. History of cardiomegaly and recurrent CHF with patient previously taking his Lasix on an every other day basis. Repeat blood work in the a.m.. Otherwise close follow-up by his ed teacher at [employer] in [place] as below. Note current pacemaker (2) Chest pain SNOMED Code(s): 89012000 Code(s): R07.9 - CHEST PAIN, UNSPECIFIED Status: Acute Priority: High Current Visit: Yes Onset Date: ~01/27/17 Qualifiers: Chest pain type: unspecified Qualified Code(s): R07.9 - Chest pain, unspecified Annotation/Comment:: GI vs Cardiac etiology suspected by accepting physician as per emergency room note. Negative serial cardiac enzymes have been normal with exception of high normal troponin I value secondary to CHF, which have improved. He is closely followed up by his ed teacher by his history. No chest pain or anginal-type symptoms during this initial hospitalization (3) Chronic constipation SNOMED Code(s): 194191478 Code(s): K59.09 - OTHER CONSTIPATION Status: Chronic Priority: Medium Current Visit: Yes Annotation/Comment:: Resolved acute constipation during this observation (4) Coronary artery disease SNOMED Code(s): 63479208 Code(s): I25.10 - ATHSCL HEART DISEASE OF [place] CORONARY ARTERY W/O ANG PCTRS Status: Chronic Priority: Medium Current Visit: Yes Qualifiers: Coronary Disease-Associated Artery/Lesion type: [place] artery [place] vs. transplanted heart: [place] heart Associated angina: without angina Qualified Code(s): I25.10 - Atherosclerotic heart disease of [place] coronary artery without angina pectoris Annotation/Comment:: As above (5) Mixed hyperlipidemia SNOMED Code(s): 449233451 Code(s): E78.2 - MIXED HYPERLIPIDEMIA Status: Chronic Current Visit: Yes Annotation/Comment:: Currently under therapy (6) Afib, Atrial fibrillation SNOMED Code(s): 54305584 Code(s): I48.91 - UNSPECIFIED ATRIAL FIBRILLATION Status: Chronic Priority: Medium Current Visit: Yes Annotation/Comment:: INR therapeutic today (7) COPD (chronic obstructive pulmonary disease) SNOMED Code(s): 60480968 Code(s): J44.9 - CHRONIC OBSTRUCTIVE PULMONARY DISEASE, UNSPECIFIED Status : Chronic Priority: Medium Current Visit: No Qualifiers: COPD type: emphysema Annotation/Comment:: No recent fever, cough, or other bronchitic type symptoms (8) HTN, Benign essential hypertension SNOMED Code(s): 6606992 Code(s): I10 - ESSENTIAL (PRIMARY) HYPERTENSION Status: Chronic Priority : Medium Current Visit: No Annotation/Comment:: Somewhat elevated during this hospitalization, however improved at this time. Continue to observe closely with IV Lasix therapy to be continued with close follow-up by his regular providers (9) Hypoalbuminemia SNOMED Code(s): 466960911 Code(s): E88.09 - OTH DISORDERS OF PLASMA-PROTEIN METABOLISM, NEC Status: Chronic Priority: Medium Current Visit: No Annotation/Comment:: High- protein Glucerna supplements as snacks (10) Renal insufficiency SNOMED Code(s): 538166607 Code(s): N28.9 - DISORDER OF KIDNEY AND URETER, UNSPECIFIED Status: Chronic Priority: Medium Current Visit: No Annotation/Comment:: As above. Continue close observation of his renal status secondary to IV Lasix therapy (11) Gout SNOMED Code(s): 34827613 Code(s): M10.9 - GOUT, UNSPECIFIED Status: Chronic Priority: Medium Current Visit: No Annotation/Comment:: Stable by history. Continue to observe closely secondary to his IV Lasix (12) UTI (urinary tract infection) SNOMED Code(s): 33611005 Code(s): N39.0 - URINARY TRACT INFECTION, SITE NOT SPECIFIED Status: Acute Priority: Medium Current Visit: Yes Onset Date: 02/10/17 Qualifiers: Urinary tract infection type: acute cystitis Hematuria presence: without hematuria Qualified Code(s): N30.00 - Acute cystitis without hematuria Annotation/Comment:: No direct evidence of UTI with negative urine culture as above. Positive leukocyte esterase on admission with continuation of Keflex therapy with caution secondary to his Coumadin therapy. Follow-up by his regular providers depending on his clinical course - Problem List Review Problem List Initiated/Reviewed/Updated: Yes - My Orders Last 24 Hours: My Active Orders 02/11/17 12:00 Potassium Chloride [Klor-Con M20] 20 meq PO TID 02/11/17 12:24 Sodium Chloride 0.9% [Saline Flush] 10 ml FLUSH ASDIRECTED PRN 02/11/17 14:06 Vaccines to be Administered [RC] PER UNIT ROUTINE GM Immunization Reflex [OM.PC] Click To Edit 02/11/17 14:08 Communication Order [RC] 02/11/17 16:00 Cephalexin [Keflex] 500 mg PO QID 02/11/17 18:00 Warfarin [Coumadin] 5 mg PO QPM 02/11/17 20:00 Sodium Chloride 0.9% [Saline Flush] 10 ml FLUSH Q12HR 02/12/17 05:11 Chest 2V [CR] Routine - Assessment Assessment:: As above - Plan Plan:: As above. Extensive precautions were given to the patient, who is in agreement with the treatment plan. Anticipate hospital discharge tomorrow. [place] pal physician assumes care later that afternoon.
[2017-02-12] MEDS: Warfarin 5 MG Tab PO SCH (17:32)
[2017-02-12] MEDS: Simvastatin 20 MG Tab PO SCH (20:11)
[2017-02-13] MEDS: Furosemide 40 MG/4 ML VIAL IVPUSH SCH ×2 (03:19→12:56)
[2017-02-13] MEDS: Sodium Chloride 0.9% 10 ML Syringe FLUSH PRN (03:20)
[2017-02-13] MEDS: Potassium Chloride 20 MEQ Tab.ER PO SCH ×2 (07:25→11:45)
[2017-02-13] MEDS: Gabapentin 300 MG Cap PO SCH ×2 (07:25→11:45)
[2017-02-13] MEDS: Cephalexin 250 MG Cap PO SCH ×2 (07:25→11:45)
[2017-02-13] MEDS: Allopurinol 100 MG Tab PO SCH (07:25)
[2017-02-13 07:26] VITALS: BP 130/65
[2017-02-13] MEDS: Metolazone 2.5 MG Tab PO SCH (07:26)
[2017-02-13] MEDS: Formoterol/Mometasone 100-5 MCG 8.8 GM Inhaler IH SCH (07:26)
[2017-02-13] MEDS: Multivitamin Tab PO SCH (07:26)
[2017-02-13] MEDS: Lisinopril 10 MG Tab PO SCH (07:26)
[2017-02-13] MEDS: Sodium Chloride 0.9% 10 ML Syringe FLUSH SCH (07:28)
--- NOTE | 2017-02-13 13:40 | PCM.DCSUM1 ---
Discharge Summary - Hospital Course Brief History: Patient admitted for chest pain complaint as well as constipation. - Discharge Data Discharge Date: 02/13/17 Discharge Disposition: Home, Self-Care 01 Condition: Good - Discharge Diagnosis/Problem(s) (1) Chest pain SNOMED Code(s): 13440061 ICD Code: R07.9 - CHEST PAIN, UNSPECIFIED Status: Acute Priority: High Current Visit: Yes Onset Date: ~01/27/17 Problem Details: Chest pain etiology uncertain. Resolved at time of admission. Described as heartburn per patient. GI etiology possible. Negative serial cardiac enzymes have been normal with exception of high normal troponin I value secondary to CHF. No chest pain or anginal-type symptoms during this initial hospitalization Qualifiers: Chest pain type: unspecified Qualified Code(s): R07.9 - Chest pain, unspecified (2) Pacemaker SNOMED Code(s): 672169391, 647126602 ICD Code: Z95.0 - PRESENCE OF CARDIAC PACEMAKER Status: Chronic Current Visit: No (3) Afib, Atrial fibrillation SNOMED Code(s): 40027763 ICD Code: I48.91 - UNSPECIFIED ATRIAL FIBRILLATION Status: Chronic Priority: Medium Current Visit: Yes Problem Details: INR therapeutic today (4) COPD, Moderate chronic obstructive pulmonary disease SNOMED Code(s): 586176931 ICD Code: J44.9 - CHRONIC OBSTRUCTIVE PULMONARY DISEASE, UNSPECIFIED Status : Chronic Current Visit: No (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 (6) Cardiomegaly SNOMED Code(s): 2524103 ICD Code: I51.7 - CARDIOMEGALY Status: Chronic Current Visit: No (7) HTN, Benign essential hypertension SNOMED Code(s): 7158737 ICD Code: I10 - ESSENTIAL (PRIMARY) HYPERTENSION Status: Chronic Priority : Medium Current Visit: No Problem Details: Somewhat elevated during this hospitalization, however improved at this time. Continue to observe closely with IV Lasix therapy to be continued with close follow-up by his regular providers (8) Osteoarthritis SNOMED Code(s): 508962468 ICD Code: M19.90 - UNSPECIFIED OSTEOARTHRITIS, UNSPECIFIED SITE Status: Chronic Priority: Medium Current Visit: No (9) Osteoporosis SNOMED Code(s): 48063578 ICD Code: M81.0 - AGE-RELATED OSTEOPOROSIS W/O CURRENT PATHOLOGICAL FRACTURE Status: Chronic Current Visit: No (10) Mixed hyperlipidemia SNOMED Code(s): 365635694 ICD Code: E78.2 - MIXED HYPERLIPIDEMIA Status: Chronic Current Visit: Yes Problem Details: Currently under therapy (11) Chronic constipation SNOMED Code(s): 120787669 ICD Code: K59.09 - OTHER CONSTIPATION Status: Chronic Priority: Medium Current Visit: Yes Problem Details: Resolved acute constipation during this observation (12) Coronary artery disease SNOMED Code(s): 24595898 ICD Code: I25.10 - ATHSCL HEART DISEASE OF [place] CORONARY ARTERY W/O ANG PCTRS Status: Chronic Priority: Medium Current Visit: Yes Problem Details: As above Qualifiers: Coronary Disease-Associated Artery/Lesion type: [place] artery [place] vs. transplanted heart: [place] heart Associated angina: without angina Qualified Code(s): I25.10 - Atherosclerotic heart disease of [place] coronary artery without angina pectoris - Patient Summary/Data Complications: None Hospital Course: Patient's complaints with chest discomfort and constipation improved quickly. Admitted to inpatient status for treatment of CHF with IV lasix. Noted to have positive leukocyte esterase in urine. No WBCs noted. Keflex initiated. Urine culture negative. BUN and Cr noted to increase, most likely secondary to aggressive IV lasix treatment. BNP improved. Serial labs to R/O OR unremarkable. - Patient Instructions Diet: Heart Healthy Diet Showering/Bathing: May Shower Other/Special Instructions: Continue regular medications. Take diuretic pill tomorrow (Wednesday). Follow up with regular provider Wednesday. May also benefit with follow up with Cardiology. Take Keflex as directed for additional 4 days. - Discharge Plan Home Medications: Home Meds Allopurinol [Zyloprim] 300 mg PO DAILY 02/10/17 [History] Fluticasone/Salmeterol [Advair Diskus 100-50] 1 puff INH BID 02/10/17 [History] Gabapentin [Neurontin] 600 mg PO TID 02/10/17 [History] Lisinopril 10 mg PO DAILY 02/10/17 [History] Metolazone 2.5 mg PO DAILY 02/10/17 [History] Multivitamin [Multi-Vitamin Daily] 1 tab PO DAILY 02/10/17 [History] Psyllium Husk/Aspartame [Metamucil Fiber Singles Packet] 3.4 gm PO BEDTIME 02/10 [History] Simvastatin [Zocor] 20 mg PO BEDTIME 02/10/17 [History] Warfarin [Coumadin] 1 tab PO Q2D 02/10/17 [History] Warfarin [Coumadin] 1.5 tab PO Q2D 02/10/17 [History] traMADol HCl [Tramadol HCl] 25 mg PO Q6H PRN 02/10/17 [History] Patient Handouts: Heart Failure, [id number] Forms: ED Department Discharge Referrals: Maritza Nevarez PA-C [Primary Care Provider] - - Discharge Summary/Plan Comment DC Time >30 min.: No - General Info Date of Service: 02/13/17 Admission Dx/Problem (Free Text: 1. Chest pain 2. Constipation Subjective Update: Patient feels back to baseline Functional Status: Reports: Pain Controlled, Tolerating Diet, Ambulating, Urinating. Denies: New Symptoms - Review of Systems General: Reports: No Symptoms HEENT: Reports: No Symptoms Pulmonary: Reports: No Symptoms Cardiovascular: Reports: No Symptoms Gastrointestinal: Reports: No Symptoms Genitourinary: Reports: No Symptoms Musculoskeletal: Reports: No Symptoms Skin: Reports: No Symptoms Neurological: Reports: No Symptoms Psychiatric: Reports: No Symptoms - Patient Data Vitals - Most Recent: Last Vital Signs Temp 36.0 C 02/13/17 08:00 Pulse 65 02/13/17 08:00 Resp 15 02/13/17 08:00 BP 130/65 02/13/17 08:00 Pulse Ox 97 02/13/17 08:00 Weight - Most Recent: 105.233 kg I&O - Last 24 hours: Intake & Output 02/12/17 02/13/17 02/13/17 22:59 06:59 14:59 Intake Total 1120 2120 Output Total 400 750 300 Balance 720 -750 1820 Lab Results - Last 24 hrs: Laboratory Results - last 24 hr 02/13/17 02/13/17 Range/Units 06:58 06:58 PT 26.8 H (9.8-11.7) SEC INR 2.4 Sodium 138 (136-145) mmol/L Potassium 4.7 (3.5-5.1) mmol/L Chloride 99 (98-107) mmol/L Carbon Dioxide 29.8 (21.0-32.0) mmol/L BUN 51 H (7-18) mg/dL Creatinine 1.92 H (0.51-1.17) mg/dL Est Cr Clr Drug Dosing 29.12 mL/min Estimated GFR (MDRD) 33 mL/min Glucose 104 (74-106) mg/dL Uric Acid 6.9 (2.6-7.2) mg/dL Calcium 9.1 (8.5-10.1) mg/dL Creatine Kinase 347 H (26-308) U/L Creatine Kinase Index 0.8 (0.0-2.5) % CK-MB (CK-2) 2.70 (0.00-3.60) ng/mL Troponin I 0.012 (0.000-0.056) ng/mL [id number] Pept 430 H (0-125) pg/mL ANDRE Results - Last 24 hrs: Microbiology 02/11/17 15:20 Urine Culture - Final Urine, Clean Catch Med Orders - Current: Current Medications Acetaminophen (Tylenol) 650 mg PO Q4H PRN PRN Reason: analgesia/fever Allopurinol (Zyloprim) 300 mg PO DAILY [facility] Last Admin: 02/13/17 07:25 Dose: 300 mg Cephalexin (Keflex) 500 mg PO QID [facility] Last Admin: 02/13/17 11:45 Dose: 500 mg Furosemide (Lasix) 40 mg IVPUSH Q8H [facility] Last Admin: 02/13/17 12:56 Dose: Not Given Gabapentin (Neurontin) 600 mg PO TID [facility] Last Admin: 02/13/17 11:45 Dose: 600 mg Lisinopril (Prinivil) 10 mg PO DAILY [facility] Last Admin: 02/13/17 07:26 Dose: 10 mg Metolazone (Zaroxolyn) 2.5 mg PO DAILY [facility] Last Admin: 02/13/17 07:26 Dose: 2.5 mg Mometasone Furoate/Formoterol Fumar (Dulera 100-5 Mcg) 2 puff IH BIDRT [facility] Last Admin: 02/13/17 07:26 Dose: 2 puff Multivitamins/Minerals/Vitamin C (Tab-A-Mando) 1 tab PO DAILY [facility] Last Admin: 02/13/17 07:26 Dose: 1 tab Potassium Chloride (Klor-Con M20) 20 meq PO TID [facility] Last Admin: 02/13/17 11:45 Dose: 20 meq Simvastatin (Zocor) 20 mg PO BEDTIME [facility] Last Admin: 02/12/17 20:11 Dose: 20 mg Sodium Chloride (Saline Flush) 10 ml FLUSH ASDIRECTED PRN PRN Reason: KEEP VEIN OPEN Last Admin: 02/13/17 03:20 Dose: 10 ml Sodium Chloride (Saline Flush) 10 ml FLUSH Q12HR [facility] Last Admin: 02/13/17 07:28 Dose: 10 ml Tramadol HCl (Ultram) 25 mg PO Q6H PRN PRN Reason: Pain Warfarin Sodium (Coumadin) 5 mg PO QPM [facility] Last Admin: 02/12/17 17:32 Dose: 5 mg Discontinued Medications Al Hydroxide/Mg Hydroxide (Gi Cocktail) 30 ml PO ONETIME ONE Stop: 02/10/17 16:41 Last Admin: 02/10/17 16:49 Dose: 30 ml Magnesium Citrate (Citrate Of Magnesia) 296 ml PO ONETIME ONE Stop: 02/10/17 19:08 Last Admin: 02/10/17 20:13 Dose: 296 ml Pharmacy To Dose (Warfarin) 0 each PO DAILY [facility] Last Admin: 02/11/17 22:29 Dose: Not Given Pantoprazole Sodium (Protonix Iv) 40 mg IVPUSH ONETIME ONE Stop: 02/10/17 19:14 Last Admin: 02/10/17 20:14 Dose: 40 mg Warfarin Sodium (Coumadin) 5 mg PO ONETIME ONE Stop: 02/10/17 20:16 Last Admin: 02/10/17 20:13 Dose: 5 mg - Exam General: Reports: Alert, Oriented, Cooperative, No Acute Distress HEENT: Reports: Pupils Equal, Pupils Reactive, EOMI, Mucous Membr. Moist/[place] Neck: Reports: Supple Lungs: Reports: Clear to Auscultation, Normal Respiratory Effort Cardiovascular: Reports: Irregular Rhythm. Denies: No Murmurs GI/Abdominal Exam: Normal Bowel Sounds, Soft, Non-Tender, No Distention (Male) Exam: Deferred Rectal (Males) Exam: Deferred Back Exam: Reports: Normal Inspection. Denies: CVA Tenderness (L), CVA Tenderness (R) Extremities: Normal Inspection, Normal Range of Motion, Non-Tender, Normal Capillary Refill, Pedal Edema (very mild, bilateral) Skin: Reports: Warm, Dry, Intact Neurological: Reports: No New Focal Deficit Psy/Mental Status: Reports: Alert, Normal Affect, Normal Mood *Q Meaningful Use (DIS) - VTE *Q VTE Criteria *Q: - Stroke *Q Stroke Criteria *Q: - AMI *Q AMI Criteria *Q:
== END 2017-02-13 14:20 | disposition home or self-care (01) | DRG 313 ==
LOC: LL.ED 16:11 → EEVIPCON 18:10 → LL.MS 18:10 → OBSVTOIN 02-11 11:27
PROVIDERS: ADMIT Emergency Medicine; ATTEND Family Medicine
DX: R07.9 Chest pain, unspecified (principal); I42.9 Cardiomyopathy, unspecified; J44.9 Chronic obstructive pulmonary disease, unspecified; I25.10 Atherosclerotic heart disease of native coronary artery without angina pectoris; I25.2 Old myocardial infarction; Z79.899 Other long term (current) drug therapy; Z79.01 Long term (current) use of anticoagulants; I50.9 Heart failure, unspecified; I48.91 Unspecified atrial fibrillation; E78.00 Pure hypercholesterolemia, unspecified
CPT/HCPCS: 36415 ×2; 71010; 74020; 80053; 81001; 82550 ×3; 82553 ×3; 83735; 83880; 84484 ×3; 85025; 85610 ×2; 93005 ×2; 96374; 99220; 99232; 99285; A9270 ×9; C9113; G0378; 71020; 80048; 84550; 87086; J1940; J7050

== ENCOUNTER 2018-03-08 16:35 | Emergency (ER) | payer MEDICARE, BC, MEDICAID ==
--- NOTE | 2018-03-08 16:38 | EDM.PDOC ---
ED HPI GENERAL MEDICAL PROBLEM - General Chief Complaint: ENT Problem Stated Complaint: nose bleed Time Seen by Provider: 03/08/18 16:38 Source of Information: Reports: Patient, Old Records ([facility] chart/EMR) History Limitations: Reports: No Limitations - History of Present Illness INITIAL COMMENTS - FREE TEXT/NARRATIVE: Patient drove himself to the emergency room via private automobile for evaluation of mostly left-sided epistaxis, which started about 14:00 hours this afternoon at home. He denies any recent injury, change in medications, when necessary use of NSAIDs/Tylenol, etc. He does have a history of recurrent epistaxis secondary to his Coumadin therapy in the past. He did try stuffing Kleenex into his nose without results with no other treatment prior to arrival. He denies any pain or discomfort. The patient denies any chest pain/pressure, heart flutter, dizziness, orthostasis, orthopnea, diaphoresis, paresthesias, recent decreased exercise tolerance, or any other anginal-type symptoms. No recent history of abdominal pain, heartburn, nausea, diarrhea, melena, gross hematochezia, or any food intolerance, including fatty foods, etc.. He denies any gross hematuria, colic, or other UTI symptoms. The patient also denies any recent fever, cough, wheezing, dyspnea, etc.. Onset: Today, Sudden Onset Date: 03/08/18 Onset Time: 14:00 Duration: Constant, Getting Worse Location: Reports: Head (Epistaxis as above). Denies: Face, Neck, Chest, Abdomen, Back, Upper Extremity, Left, Upper Extremity, Right, Radiates to Quality: Reports: Other (No pain) Severity: Moderate (Moderate bleeding) Improves with: Reports: None Worsens with: Reports: None Context: Reports: Other (As above). 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 (see below) (As above) - Related Data Allergies Allergy/AdvReac Type Severity Reaction Status Date / Time celecoxib [From Celebrex] Allergy Itching Verified 03/08/18 16:36 Home Meds: Home Meds Allopurinol [Zyloprim] 300 mg PO DAILY 02/10/17 [History] Fluticasone/Salmeterol [Advair Diskus 100-50] 1 puff INH BID 02/10/17 [History] Gabapentin [Neurontin] 600 mg PO TID 02/10/17 [History] Lisinopril 10 mg PO DAILY 02/10/17 [History] Multivitamin [Multi-Vitamin Daily] 1 tab PO DAILY 02/10/17 [History] Psyllium Husk/Aspartame [Metamucil Fiber Singles Packet] 3.4 gm PO BEDTIME 02/10 [History] Simvastatin [Zocor] 20 mg PO BEDTIME 02/10/17 [History] Warfarin [Coumadin] 1 tab PO Q2D 02/10/17 [History] Warfarin [Coumadin] 1.5 tab PO Q2D 02/10/17 [History] metOLazone [Metolazone] 2.5 mg PO DAILY 02/10/17 [History] traMADol HCl [Tramadol HCl] 25 mg PO Q6H PRN 02/10/17 [History] Cholecalciferol (Vitamin D3) [Vitamin D3] 3,000 unit PO DAILY #30 tablet [Rx] Past Medical History HEENT History: Reports: Cataract, Hard of Hearing, Impaired Vision, Other (See Below). Denies: Allergic Rhinitis, Glaucoma, Macular Degeneration, Retinal Detachment, Sinusitis Other HEENT History: Left-sided hearing aide, glasses. Recurrent epistaxis secondary to Coumadin therapy. Cardiovascular History: Reports: Afib, Arrhythmia, CAD, Cardiomyopathy, Heart Failure, Heart Murmur, High Cholesterol, Hypertension, NE, Pacemaker, Pulmonary Hypertension, PVD, Other (See Below). Denies: Aneurysm, Blood Clots/VTE/DVT, Bypass, PTCA, Stents, Syncope Other Cardiovascular History: Multiform PVCs; moderate biatrial enlargement, right ventricular enlargement/cardiomegaly, pulmonary hypertension and cardiomegaly by echocardiogram; borderline incomplete bifascicular bundle branch block; possible history of NE in the past however patient is uncertain; mild aortic valve stenosis/insufficiency and mitral valve insufficiency, diastolic CHF. Sick sinus syndrome with tachycardia/bradycardia and pacemaker placement in June 2016. Respiratory History: Reports: Bronchitis, Recurrent, COPD, Intubation, Previous , Pneumonia, Recurrent, Pulmonary Fibrosis, Sleep Apnea, Other (See Below). Denies: Asthma, Intubation, Difficult, PE, Pneumothorax, TB Other Respiratory History: Patient no longer uses his CPAP Gastrointestinal History: Reports: Cholelithiasis, Chronic Constipation, Colon Polyp, Diverticulosis, Other (See Below). Denies: Celiac Disease, Chronic Diarrhea, Cirrhosis, Gastritis, GERD, GI Bleed, Hepatitis, Helicobacter Pylori, Hiatal Hernia, Inflammatory Bowel Disease, Irritable Bowel Syndrome, Jaundice, Pancreatitis Other Gastrointestinal History: Umbilical hernia Genitourinary History: Reports: BPH, Chronic Renal Insuffiency, Other (See Below ). Denies: Acute Renal Failure, Dialysis, Renal Calculus, STD, Urinary Incontinence, UTI, Recurrent Other Genitourinary History: Stage III chronic renal disease Musculoskeletal History: Reports: Amputation, Arthritis, Back Pain, Chronic, Fracture, Gout, Neck Pain, Chronic, Osteoarthritis, Osteoporosis, Other (See Below). 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 Trigger finger of digit #4 of the right hand. Neurological History: Reports: Neuropathy, Peripheral, Other (See Below). Denies: Cerebral Aneurysms, CVA, Headaches, Chronic, Head Trauma, Migraines, MS , Parkinson's, Seizure, TIA, Vertigo Other Neuro History: History of trigeminal neuralgia. Restless leg syndrome. Psychiatric History: Reports: Addiction, Other (See Below). Denies: Abuse, Victim of, ADD, ADHD, Alzheimers Disease, Anxiety, Dementia, Depression, Psych Hospitalization(s), PTSD, Suicide Attempt, Suicidal Ideation Other Psychiatric History: Chronic Ultram use. Endocrine/Metabolic History: Reports: Obesity/BMI 30+, Osteoporosis, Other (See Below). Denies: Diabetes, Type I, Diabetes, Type II, Diabetes Mellitus, Type 3c , Hypothyroidism, IDDM Other Endocrine/Metabolic History: Hypomagnesemia. Hypoalbuminemia. Hematologic History: Reports: Anemia, B12 Deficiency. Denies: Blood Transfusion (s), Iron Deficiency Immunologic History: Reports: None. Denies: AIDS, HIV, SLE Oncologic (Cancer) History: Reports: None. Denies: Basal Cell Carcinoma, Cervix , Colon, Hodgkin's Lymphoma, Lymphoma, Malignant Melanoma, Non-Hodgkin's Lymphoma, Prostate, Squamous Cell Carcinoma Dermatologic History: Reports: Venous Stasis Dermatitis - Infectious Disease History Infectious Disease History: Reports: Chicken Pox, Mumps. Denies: C-Difficile, Measles, Meningitis, Mononucleosis, MRSA, Pertussis (Whooping Cough), Rheumatic Fever, RSV, Rubella, Shingles, TB, VRE - Past Surgical History Head Surgeries/Procedures: Reports: None HEENT Surgical History: Reports: Cataract Surgery, Oral Surgery, Other (See Below). Denies: Adenoidectomy, Eye Surgery, Laser Surgery, LASIK, Naso-Sinus Surgery, Tonsillectomy Other HEENT Surgeries/Procedures: Bilateral cataract surgery in 2010. Multiple teeth extractions with partial dentures uppers and lowers. Cardiovascular Surgical History: Reports: Pacer, Other (See Below). Denies: Varicose Other Cardiovascular Surgeries/Procedures: Pacemaker placement in June 2016. Respiratory Surgical History: Reports: Other (See Below). Denies: Thoracentesis Other Respiratory Surgeries/Procedures: Bronchoscopy on 05/30/13. GI Surgical History: Reports: Appendectomy, Cholecystectomy, Colonoscopy, Polypectomy, Other (See Below). Denies: EGD, Hernia, Abdominal, Hernia, Inguinal, Hernia Repair/Other Other GI Surgeries/Procedures: Open Cholecystectomy with concurrent appendectomy in 1970. Patient is uncertain concerning the date of his colonoscopy. Male Surgical History: Reports: None. Denies: Circumcision, TURP- Transurethral Resection of Prostate, Vasectomy Endocrine Surgical History: Reports: None Neurological Surgical History: Reports: Laminectomy, Lumbar Spine, Other (See Below). Denies: C-Spine, Discectomy, Intracranial, Spinal Fusion, Thoracic Spine, Vertebroplasty Other Neurological Surgeries/Procedures: Laminectomy of the lumbar spine in 1969. Musculoskeletal Surgical History: Reports: Amputation, ORIF, Other (See Below). Denies: Arthroscopic Procedure, Carpal Tunnel, Ganglion Cyst, Joint Replacement, Shoulder Surgery Other Musculoskeletal Surgeries/Procedures:: ORIF of left ankle fracture on 07/14. Amputation of digit #4 of the left hand in 1974. Oncologic Surgical History: Reports: None Dermatological Surgical History: Reports: None - Past Imaging History Past Imaging History: Reports: Cardiac Echo (Last known echocardiogram on with findings as above and an ejection fraction of 60%. Previous evaluation on 06/29/13.), MRI (C-spine on 05/09/15 and lumbar spine in May 2016), Venous Doppler (Venous Doppler studies of the lower extremities bilaterally on 06/16/16.) Social & Family History - Family History HEENT: Reports: None. Denies: Allergic Rhinitis, Cataract, Glaucoma, Macular Degeneration, Retinal Detachment Cardiac: Reports: Hypertension, Other (See Below). Denies: Afib, Aneurysm, Arrhythmia, Blood Clots/VTE/DVT, CAD, Heart Failure, High Cholesterol, NE, Syncope Other Cardiac Family History: Mother with hypertension Respiratory: Reports: None. Denies: Asthma, COPD, PE, Pneumothorax, Sleep Apnea GI: Reports: None. Denies: Celiac Disease, Cholelithiasis, Colon Polyps, GERD, GI bleed, Inflammatory Bowel Disease, Irritable Bowel Syndrome, PUD : Reports: None. Denies: Dialysis, Renal Calculus, Renal Disease/ Insufficiency OBGYN: Reports: None. Denies: Endometriosis, Recurrent Spontaneous Musculoskeletal: Reports: None. Denies: Arthritis, Gout, RA, SLE Neurological: Reports: None. Denies: Alzheimers Disease, Cerebral Aneurysms, CVA, Dementia, Migraines, MS, Parkinson's, Seizure, TIA Psychiatric: Reports: None. Denies: Abuse, Victim of, ADD, ADHD, Anxiety, Bipolar, Depression, Psych Hospitalization(s), PTSD, Suicide Attempt Endocrine/Metabolic: Reports: None. Denies: Diabetes, Type I, Diabetes, type II , Diabetes Mellitus, Type 3c, Hypothyroidism, IDDM Hematologic: Reports: None. Denies: Anemia Immunologic: Reports: None. Denies: AIDS, HIV, SLE Dermatologic: Reports: None. Denies: Eczema, Psoriasis Oncologic: Reports: None. Denies: Colon, Hodgkin's Lymphoma, Leukemia, Lymphoma , Non-Hodgkin's Lymphoma, Prostate - Tobacco Use Smoking Status *Q: Former Smoker Tobacco Use Within Last Twelve Months: No Years of Tobacco use: 20 Packs/Tins Daily: 2.5 Used Tobacco, but Quit: Yes Month/Year Tobacco Last Used: Stop smoking in 1969 Smoking Cessation Information Provided To Patient: No Second Hand Smoke Exposure: No Second Hand Smoke Education Provided: No - Caffeine Use Caffeine Use: Reports: Coffee, Tea. Denies: Energy Drinks, Soda Caffeine Use Comment: One cup of coffee per day, 2 glasses of tea per day - Alcohol Use Alcohol Use History: Yes Days Per Week of Alcohol Use: 1 Number of Drinks Per Day: 1 Total Drinks Per Week: 1 Total Drinks Per Week Comment: Usually beer. No previous DWIs, problems with alcohol abuse, etc. 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 ED EXAM, GENERAL - Physical Exam Exam: See Below Exam Limited By: No Limitations General Appearance: Alert, WD/WN, No Apparent Distress Eye Exam: Bilateral Eye: EOMI, Normal Inspection (No nystagmus. Patient wearing glasses), PERRL Ears: Normal External Exam, Normal Canal, Normal TMs, Hearing Loss (Severe bilateral presbycusis despite sided hearing aid therapy) Nose: Other (Moderate mostly left anterior septal epistaxis secondary to superficial vascularity with some clot formation, however no foreign body, etc. Minimal epistaxis and superficial vascularity over the lateral right naris). No : Nasal Tenderness, Nasal Deformity, Nasal Swelling, Clear Rhinorrhea Throat/Mouth: Normal Inspection, Normal Lips, Normal Gums, Normal Oropharynx, Normal Voice, No Airway Compromise. No: Normal Teeth (Partial dentures uppers and lowers), Dysphagia, Perioral Cyanosis Head: Atraumatic, Normocephalic. No: Facial Swelling, Facial Tenderness, Sinus Tenderness Neck: Supple, Non-Tender, Full Range of Motion, Carotid Bruit (Mild bilateral carotid bruits versus transmitted heart sounds). No: Lymphadenopathy (L), Lymphadenopathy (R), Thyromegaly Respiratory/Chest: No Respiratory Distress, Lungs Clear, Normal Breath Sounds, No Accessory Muscle Use, Chest Non-Tender. No: Pleural Rub, Retractions Cardiovascular: Normal Peripheral Pulses, Regular Rate, Rhythm, No Edema, No Gallop, No JVD, No Rub, Systolic Murmur (Mild 1/6 BILL of the aortic and mitral valve.), Other (Note current pacer). No: Gallop/S3, Gallop/S4, Friction Rub Peripheral Pulses: 2+: Radial (L), Radial (R) GI/Abdominal: Normal Bowel Sounds, Soft, Non-Tender, No Organomegaly, No Distention, No Abnormal Bruit, No Mass, Hernia (2 cm in diameter nonincarcerated umbilical hernia. Large right upper quadrant abdominal scar.), Other (Obese). No: Pelvis Stable, Guarding (Male) Exam: Deferred Rectal (Males) Exam: Deferred Back Exam: Normal Inspection, Full Range of Motion. No: CVA Tenderness (L), CVA Tenderness (R), Muscle Spasm Extremities: Normal Range of Motion, Non-Tender, No Pedal Edema, Normal Capillary Refill, Other (Status post amputation of digit #4 of the left hand). No: Yesenia's Sign Neurological: Alert, Oriented, CN II-XII Intact, Normal Cognition, Normal Gait, No Motor/Sensory Deficits Psychiatric: Normal Affect, Normal Mood Skin Exam: Warm, Dry, Intact, Normal Color, No Rash. No: Diaphoretic, Ecchymosis, Jaundice, Pallor, Petechiae, Wound/Incision ED GENERAL MEDICAL PROCEDURES - Additional/Other Procedure(s) Other (Free Text) Procedure(s): Bilateral nasal nasal packing: Initial cauterization of the left anterior medial septum with a total of 6 silver nitrate sticks with overall good results. Subsequent Surgicel at the cauterization site with additional placement of an anterior Rapid Rhino. Right lateral anterior nasal area cauterized with a total of 4 silver nitrate sticks and additional placement of a right anterior Rapid Rhino. The left naris was secured with #1 gauze strips. Excellent results with the above procedure with no complications. No evidence of posterior nasal bleeding. Course - Vital Signs Last Recorded V/S: Last Vital Signs Temp 36.4 C 03/08/18 17:34 Pulse 82 03/08/18 17:34 Resp 18 03/08/18 17:34 BP 134/68 03/08/18 17:34 Pulse Ox 94 L 03/08/18 17:34 Vital Signs - 24 hr 03/08/18 17:34 Temperature [ 36.4 C Oral] Pulse, 82 Peripheral [ Left Pulse Oximetry] Respiratory 18 Rate Blood Pressure 134/68 [Left Upper Arm ] O2 Sat by Pulse 94 L Oximetry - Orders/Labs/Meds Orders: Active Orders 24 hr Category Date Time Status Obtain Past Medical Record [OM.PC] Routine Oth 03/08/18 16:38 Active Labs: Laboratory Tests 03/08/18 03/08/18 03/08/18 Range/Units 16:45 16:45 16:45 WBC 8.1 (4.0-10.2) K/uL RBC 4.56 (4.33-5.41) M/uL Hgb 14.4 (13.1-16.8) g/dL Hct 43.4 (39.0-49.0) % MCV 95.2 (84.0-98.0) fL MCH 31.6 (28.2-33.3) pg MCHC 33.2 (31.7-36.0) g/dL RDW 15.8 H (11.2-14.1) % Plt Count 171 (150-350) K/uL Neut % (Auto) 74.4 (45.0-80.0) % Lymph % (Auto) 14.2 (10.0-50.0) % [place] % (Auto) 9.5 (2.0-14.0) % Eos % (Auto) 1.7 (0.0-5.0) % Baso % (Auto) 0.2 (0.0-2.0) % Neut # (Auto) 6.01 (1.40-7.00) K/uL Lymph # (Auto) 1.15 (0.50-3.50) K/uL [place] # (Auto) 0.77 (0.00-1.00) K/uL Eos # (Auto) 0.14 (0.00-0.50) K/uL Baso # (Auto) 0.02 (0.00-0.20) K/uL PT 21.7 H (9.8-11.7) SEC INR 2.0 APTT 38.7 H (22.1-29.8) SEC Sodium 138 (136-145) mmol/L Potassium 4.5 (3.5-5.1) mmol/L Chloride 101 (98-107) mmol/L Carbon Dioxide 25.0 (21.0-32.0) mmol/L BUN 29 H (7-18) mg/dL Creatinine 1.37 H (0.51-1.17) mg/dL Est Cr Clr Drug Dosing TNP Estimated GFR (MDRD) 49 mL/min Glucose 109 H (74-106) mg/dL Calcium 9.0 (8.5-10.1) mg/dL Total Bilirubin 0.5 (0.2-1.0) mg/dL AST 23 (15-37) U/L ALT 29 (12-78) U/L Alkaline Phosphatase 76 (46-116) IU/L Total Protein 7.8 (6.4-8.2) g/dL Albumin 3.8 (3.4-5.0) g/dL Meds: None - Radiology Interpretation Free Text/Narrative:: None Departure - Departure Time of Disposition: 18:30 Disposition: Home, Self-Care 01 Condition: Good Clinical Impression: Epistaxis, Afib, Atrial fibrillation, HTN, Benign essential hypertension, Osteoarthritis COPD (chronic obstructive pulmonary disease) Qualifiers: COPD type: emphysema Emphysema type: panlobular Qualified Code(s): J43.1 - Panlobular emphysema Coronary artery disease Qualifiers: Coronary Disease-Associated Artery/Lesion type: [place] artery [place] vs. transplanted heart: [place] heart Associated angina: without angina Qualified Code(s): I25.10 - Atherosclerotic heart disease of [place] coronary artery without angina pectoris - Discharge Information *PRESCRIPTION DRUG MONITORING PROGRAM REVIEWED*: Not Applicable *COPY OF PRESCRIPTION DRUG MONITORING REPORT IN PATIENT NATHALIA: Not Applicable Instructions: Nosebleed, [id number] Referrals: Maritza Nevarez PA-C [Primary Care Provider] - Forms: ED Department Discharge Additional Instructions: 1. Followup with your regular provider in 2 days as directed for reevaluation and probable removal of nasal packings. Bring these discharge instructions with you to that visit. 2. Notify regular provider at follow-up that your INR was 2.0 today. 3. Ice packs to the neck and/or pinching of the nose, if nose bleeds recur - Problem List & Annotations (1) Epistaxis SNOMED Code(s): 728112248 Code(s): R04.0 - EPISTAXIS Status: Acute Priority: High Onset Date: Annotation/Comment:: Recurrent epistaxis secondary to Coumadin therapy as above. Overall excellent results with bilateral nasal packing as above. Close follow-up by regular provider as per discharge instructions. (2) Afib, Atrial fibrillation SNOMED Code(s): 87755096 Code(s): I48.91 - UNSPECIFIED ATRIAL FIBRILLATION Status: Acute Priority : Medium Annotation/Comment:: INR therapeutic today. Continue Coumadin therapy since in low therapeutic range with close follow-up by regular provider. (3) HTN, Benign essential hypertension SNOMED Code(s): 6402519 Code(s): I10 - ESSENTIAL (PRIMARY) HYPERTENSION Status: Chronic Priority : Medium Annotation/Comment:: Blood pressure under good control during ER visit. Continue to observe closely by his regular provider. (4) Osteoarthritis SNOMED Code(s): 982169396 Code(s): M19.90 - UNSPECIFIED OSTEOARTHRITIS, UNSPECIFIED SITE Status: Chronic Priority: Medium Annotation/Comment:: Stable by history with history of gout. (5) COPD (chronic obstructive pulmonary disease) SNOMED Code(s): 35910289 Code(s): J44.9 - CHRONIC OBSTRUCTIVE PULMONARY DISEASE, UNSPECIFIED Status : Chronic Priority: Medium Annotation/Comment:: No recent fever, cough, or other bronchitic type symptoms Qualifiers: COPD type: emphysema Emphysema type: panlobular Qualified Code(s): J43.1 - Panlobular emphysema (6) Coronary artery disease SNOMED Code(s): 21390037 Code(s): I25.10 - ATHSCL HEART DISEASE OF [place] CORONARY ARTERY W/O ANG PCTRS Status: Chronic Priority: Medium Annotation/Comment:: No recent history of chest pain or anginal type symptoms. Note history of pacemaker placement, CHF, etc. as above Qualifiers: Coronary Disease-Associated Artery/Lesion type: [place] artery [place] vs. transplanted heart: [place] heart Associated angina: without angina Qualified Code(s): I25.10 - Atherosclerotic heart disease of [place] coronary artery without angina pectoris - Problem List Review Problem List Initiated/Reviewed/Updated: Yes - My Orders Last 24 Hours: My Active Orders 03/08/18 16:38 Obtain Past Medical Record [OM.PC] Routine - Assessment/Plan Last 24 Hours: My Active Orders 03/08/18 16:38 Obtain Past Medical Record [OM.PC] Routine Assessment:: As above. Plan: As above. Extensive precautions were given to the patient, who is in agreement with the treatment plan. See Patient Instructions for further treatment and plan.
[2018-03-08 17:12] LABS: CHLORIDE,CL 101 mmol/L (98-107); SODIUM,NA 138 mmol/L (136-145)
[2018-03-08 17:36] VITALS: BP 134/68
== END 2018-03-08 18:30 | disposition home or self-care (01) ==
LOC: LL.ED 16:35
DX: R04.0 Epistaxis (principal); I13.0 Hypertensive heart and chronic kidney disease with heart failure and stage 1 through stage 4 chronic kidney disease, or unspecified chronic kidney disease; I50.9 Heart failure, unspecified; N18.9 Chronic kidney disease, unspecified; I48.91 Unspecified atrial fibrillation; M19.90 Unspecified osteoarthritis, unspecified site; J43.1 Panlobular emphysema; I25.10 Atherosclerotic heart disease of native coronary artery without angina pectoris; E78.00 Pure hypercholesterolemia, unspecified; I25.2 Old myocardial infarction; Z79.899 Other long term (current) drug therapy; Z88.1 Allergy status to other antibiotic agents
CPT/HCPCS: 30903; 36415; 80053; 85025; 85610; 85730; 99283; 99284